=== PATIENT | female | born 1990 | race African-American/Black ===

== ENCOUNTER 2020-03-22 21:22 | Inpatient (IN) | payer OTHER ==
[~2020-03-22] VITALS: Ht 149.9 cm; Wt 44.7 kg
[2020-03-22] MEDS ORDERED: ONDANSETRON HCL 4 MG/2 ML VIAL IV ONE (22:30)
[2020-03-22] MEDS ORDERED: diphenhdrAMINE HCL 50 MG/1 ML VL IV ONE (22:30)
[2020-03-22] MEDS ORDERED: HYDROmorphone HCL 2 MG/ML VL IV ONE (22:30)
[2020-03-22 22:45] LABS: Basophils # (auto) 0.2 10 ^3/uL (0-0.2); Lymphocytes % (auto) 45.2 % (10.0-50.0); Red Blood Cells 2.53 10^6/uL (4.0-5.20)
[2020-03-22 22:47] LABS: Basophils % (auto) 1.2 % (0.0-2.0); Eosinophils # (auto) 0.7 10 ^3/uL (0-0.8); Eosinophils % (auto) 3.3 % (0.0-7.0); Hematocrit 24.3 % (36.0-46.0); Hemoglobin 8.2 g/dL (12.2-16.2); Mean Corpuscular Hemoglobin 32.2 pg (28.0-32.0); Mean Corpuscular Hgb Conc. 33.5 g/dL (32.0-36.0); Mean Corpuscular Volume 96.1 fL (80.0-100.0); Monocytes # (auto) 1.5 10 ^3/uL (0-1.3); Monocytes % (auto) 7.3 % (0.0-12.0); Neutrophils # (auto) 8.6 10 ^3/uL (1.6-8.6); Platelet Count (auto) 180 10^3/uL (140-450); White Blood Cell 19.9 10^3/uL (4.4-10.8)
[2020-03-22 22:49] LABS: Urine Bacteria FEW /hpf (None Seen); Urine Blood Negative /uL (Negative); Urine Hyaline Cast FEW /lpf (0 - 2); Urine Mucus FEW (None Seen); Urine Specific Gravity 1.014 (1.001-1.035); Urine WBC 6 /hpf (0 - 5)
[2020-03-22 23:02] LABS: Alanine Aminotransferase 124 U/L (13-56); Albumin 4.2 g/dL (3.4-5.0); Anion Gap 7 (5-15); Aspartate Aminotransferase 101 U/L (15-37); BUN/Creatinine Ratio 29.4; Blood Urea Nitrogen 15 mg/dL (7-18); Calcium 9.7 mg/dL (8.5-10.1); Carbon Dioxide 28 mmol/L (21-32); Chloride 107 mmol/L (98-107); GFR African American 183 mL/min; GFR Non-African American 152 mL/min; Glucose 81 mg/dL (74-106); Potassium 3.8 mmol/L (3.5-5.1); Sodium 142 mmol/L (136-145)
[2020-03-22 23:07] LABS: Alkaline Phosphatase 180 U/L (45-117); Bilirubin, Total 2.5 mg/dL (0.2-1.0); Total Protein 8.5 g/dL (6.4-8.2)
[2020-03-22 23:08] LABS: Alcohol, Urine < 3.0 mg/dL (0-10); Amphetamine Screen, Urine NEGATIVE (NEGATIVE); Barbiturate Scree,Urine NEGATIVE (NEGATIVE); Benzodiazephine Screen, Urine NEGATIVE (NEGATIVE); Cannabinoid Screen, Urine POSITIVE (NEGATIVE); Cocaine Screen, Urine NEGATIVE (NEGATIVE); Opiate Scree,Urine NEGATIVE (NEGATIVE); Phencyclidine Screen, Urine NEGATIVE (NEGATIVE)
[2020-03-22 23:52] LABS: Nucleated Red Blood Cells % 4.2 %; Red Cell Distribution Width 25.3 % (11.8-14.3)
[2020-03-23 00:12] LABS: INR 1.15 (0.9-1.15); Partial Thromboplastin Time 27.4 sec (23.0-31.2)
[2020-03-23] MEDS ORDERED: DexAMETHasone 4 MG TAB PO ONE (00:45)
[2020-03-23] MEDS ORDERED: ASCORBIC ACID 500 MG TAB PO ONE (00:45)
[2020-03-23] MEDS ORDERED: DOXYCYCLINE 100 MG TAB/CAP PO ONE (00:45)
[2020-03-23 02:19] LABS: Magnesium 2.2 mg/dL (1.6-2.6)
[2020-03-23 02:21] LABS: CRP High Sensitivity 0.72 mg/dL (< 0.3)
[2020-03-23] MEDS ORDERED: traMADol HCL 50 MG TAB PO PRN (04:15)
[2020-03-23] MEDS ORDERED: NITROGLYCERIN 0.4 MG SL TAB SL PRN (04:15)
[2020-03-23] MEDS ORDERED: MORPHINE SULF INJ 2 MG/ML SYRINGE 1ML IV PRN (04:15)
[2020-03-23] MEDS ORDERED: DOCUSATE SOD 100 MG CAP PO PRN (04:15)
[2020-03-23] MEDS: DOXYCYCLINE 100MG/250ML 250 ML IV SCH ×2 (04:56→16:22)
[2020-03-23] MEDS: SOD CHL 0.45% 1,000 ML IV SCH ×2 (06:02→16:22)
[2020-03-23 06:20] VITALS: BP 100/52
--- NOTE | 2020-03-23 06:20 | NUR ---
MS admit from ER to Covid-19 Unit PRASHANTH ONTIVEROS admitted to tele/MS. Patient oriented to LILIA DIA, primary RN, unit, room, bed, and unit policies regarding patient care and visiting hours. Patient is alert and oriented x4. Patient denies shortness of breath. Patient is complaining of generalized pain 10/10 (will medicate patient as ordered by MD). No sign/symptoms of distress noted or verbalized at this time. Instructed on plan of care and encouraged patient to call for assistance as needed. Bed is locked in lowest position, side rails x 2 are up, and call light is within reach.
[2020-03-23] MEDS: ONDANSETRON HCL 4 MG/2 ML VIAL IV PRN (06:40)
[2020-03-23 08:00] VITALS: BP 94/65
[2020-03-23] MEDS: diphenhdrAMINE HCL 50 MG/1 ML VL IV PRN ×5 (08:03→22:50)
[2020-03-23] MEDS: HYDROmorphone HCL 2 MG/ML VL IV PRN ×5 (08:03→22:50)
[2020-03-23] MEDS ORDERED: HYDR500C PO (08:24)
[2020-03-23] MEDS ORDERED: ALBU0.084 NEB (08:24)
[2020-03-23] MEDS ORDERED: ASPI-543 PO (08:24)
[2020-03-23] MEDS ORDERED: CHOL20007 PO (08:24)
[2020-03-23] MEDS ORDERED: ASCO500T11 PO (08:24)
[2020-03-23] MEDS ORDERED: FOLI1TAB6 PO (08:24)
[2020-03-23 09:00] VITALS: BP 94/65
[2020-03-23] MEDS: FAMOTIDINE 20 MG TAB PO SCH ×3 (10:00→21:22)
[2020-03-23] MEDS: ENOXAPARIN SOD 30 MG/0.3 ML SYRINGE SC SCH ×2 (10:00→10:03)
[2020-03-23] MEDS: MULTIPLE VITAMIN TAB PO SCH (10:02)
[2020-03-23] MEDS: DexAMETHasone SOD PHOS 10MG/1ML VIAL INJ IV SCH (10:02)
[2020-03-23] MEDS: ZINC SULFATE 220mg CAP or TAB PO SCH (10:02)
[2020-03-23] MEDS: ASCORBIC ACID 500 MG TAB PO SCH ×2 (10:03→21:58)
--- NOTE | 2020-03-23 10:25 | NUR ---
pain med administration Per NOC RN, Jose and Jamie pulled at 06:38 and given at that time, however documented admin time is 0803. Patient reporting pain of 10/10. Patient is due for medication. Medication administered.
[2020-03-23 10:53] LABS: Albumin 4.3 g/dL (3.4-5.0); Calcium 9.2 mg/dL (8.5-10.1); Potassium 4.1 mmol/L (3.5-5.1)
[2020-03-23 10:57] LABS: BUN/Creatinine Ratio 25.5; Total Protein 8.4 g/dL (6.4-8.2)
--- NOTE | 2020-03-23 11:50 | NUR ---
Dr Zamora bedside with patient discussing plan of care
[2020-03-23] MEDS ORDERED: SIMETHICONE 80 MG CHEWABLE TABLET PO PRN (12:30)
[2020-03-23 13:00] VITALS: BP 106/78
--- NOTE | 2020-03-23 13:47 | NUR ---
recieved report from [facility] rn
[2020-03-23 13:51] LABS: Basophils # (auto) 0.1 10 ^3/uL (0-0.2); Eosinophils # (auto) 0 10 ^3/uL (0-0.8); Hemoglobin 8.4 g/dL (12.2-16.2); Monocytes # (auto) 0.3 10 ^3/uL (0-1.3)
[2020-03-23 13:53] LABS: Basophils % (auto) 0.5 % (0.0-2.0); Lymphocytes # (auto) 2.8 10 ^3/uL (0.4-5.4); Lymphocytes % (auto) 18.9 % (10.0-50.0); Mean Corpuscular Hemoglobin 31.3 pg (28.0-32.0); Mean Corpuscular Hgb Conc. 32.4 g/dL (32.0-36.0); Mean Corpuscular Volume 96.4 fL (80.0-100.0); Monocytes % (auto) 1.9 % (0.0-12.0); Neutrophils # (auto) 11.6 10 ^3/uL (1.6-8.6); Neutrophils % (auto) 78.7 % (37.0-80.0); Platelet Count (auto) 195 10^3/uL (140-450); White Blood Cell 14.8 10^3/uL (4.4-10.8)
[2020-03-23 13:56] LABS: Nucleated Red Blood Cells % 5.7 %
--- NOTE | 2020-03-23 14:40 | NUR ---
Patient transferred to room 286B after report given to RN, Evangelina. Patients personal belongings with patient.
--- NOTE | 2020-03-23 14:43 | NUR ---
PT ARRIVED TO ROOM 86B VIA WHEELCHAIR NO RESPIRATORY DISTRESS NOTED
[2020-03-23 16:58] VITALS: BP 111/60
--- NOTE | 2020-03-23 17:25 | NUR ---
PT REQUESTED THROAT LOZENGE PAGED MD GREGORIO AWAITING CALL BACK
--- NOTE | 2020-03-23 19:15 | NUR ---
REQUEST TO SHOWER DURING SHIFT CHANGE, PATIENT'S MEDICAL ASSISTANT PER DIEM COMES TO NURSES STATION TO REPORT THAT PATIENT WANTS TO TAKE A SHOWER. MEDICAL ASSISTANT PER DIEM DIRECTED TO ASSIST PATIENT WITH SHOWERING NEEDS.
--- NOTE | 2020-03-23 19:30 | NUR ---
OPENING SHIFT NOTE PATIENT COMES TO NURSES STATION WITH DEMANDS THAT SHE WANTS TO SHOWER. PATIENT VERBALLY ABUSIVE TO THIS RN AND OTHER STAFF MEMBERS. PATIENT ASSISTED SAFELY BACK TO ROOM FOR INITIAL ASSESSMENT AND VERBALLY ABUSIVE THAT THIS RN TO PERFORM ASSESSMENT BEFORE SHOWER. PATIENT EDUCATED ON IMPORTANCE FOR INITIAL ASSESSMENT, PATIENT IN AGREEMENT. PATIENT ALERT AND ORIENTED, WITH NO APPARENT S/S OF DISTRESS/SOB. FALL AND SAFETY PRECAUTIONS IN PLACE. CALL LIGHT WITHIN REACH AND ABLE TO USE. PATIENT ASSISTED TO COVER PORTACATH SECURELY AND ASSISTED WITH SHOWERING NEEDS. WILL CONTINUE TO MONITOR EVERY 1 HOUR AND PRN.
[2020-03-23] MEDS ORDERED: DEFEROXAMINE IV SCH (20:15)
[2020-03-23] MEDS ORDERED: D5W 5% IV SCH (20:15)
--- NOTE | 2020-03-23 20:50 | NUR ---
MED NOT AVAILABLE / ON-CALL PHARM CALLED AFTER-HOURS PHARMACY CALLED AT THIS TIME. MEDICATION IS NOT LISTED ON PATIENT'S PROFILE MEDS IN MED [employer]. NOT ABLE TO LOCATED MEDICATION. INSPECTOR FILTER TIP STATED SHE WILL RESTART MED TO ATTEMPT REFRESHMENT IN PATIENT'S PROFILE MEDICATIONS. WILL CONTINUE TO MONITOR.
--- NOTE | 2020-03-23 21:05 | NUR ---
BEACH EXPERT CALLED BEACH EXPERT CALLED FOR ASSISTANCE IN LOCATING MEDICATION. BEACH EXPERT COMES TO [facility] TO LOOK FOR MEDICATION. MEDICATION NOT FOUND. MEDICATION NEEDS TO BE MADE. INSTRUCTED BY BEACH EXPERT TO CALL [facility] FOR MEDICATION.
--- NOTE | 2020-03-23 21:15 | NUR ---
PROSPER MORA PAGED PROSPER MORA PAGEMatt. RECEIVED CALL BACK. NOTIFIED HS THAT THIS RN IN NEED OF PATIENT'S MEDICATION. HS STATED SHE WILL, "LOOK FOR IT" AND LET THIS RN KNOW. WILL CONTINUE TO MONITOR.
--- NOTE | 2020-03-23 21:20 | NUR ---
ON-CALL HOSP NOTIFIED OF MED NON-ADMIN PATIENT REFUSING SCHEDULED MEDICATION (SEE EMAR) STATED SHE DOESN'T LIKE IT. PATIENT EDUCATED ON INDICATION FOR MEDICATION, PATIENT VERBALIZED UNDERSTANDING AND REFUSES. PATIENT EDUCATED REINFORCED AND PATIENT CONTINUES TO REFUSE. ON-CALL HOSP NOTIFIED AT THIS TIME THAT PATIENT REFUSING MEDICATION AND UPDATED ON PATIENT STATUS. FORWARDER OPERATOR STATES UNDERSTANDING AND NEW ORDERS RECEIVED, READ BACK AND VERIFIED (SEE NEW ORDERS). WILL CONTINUE TO MONITOR.
[2020-03-23 22:00] VITALS: BP 112/71
--- NOTE | 2020-03-23 22:00 | NUR ---
MED TO BE GIVEN LATE MEDICATION SCHEDULED AT 2100 (SEE EMAR) STILL NOT AVAILABLE. RECEIVED NOTIFICATION FORM [place] ABBY THAT HS MAKING ATTEMPTS TO WORK WITH ON-CALL PHARMACIST TO MAKE/OBTAIN/DELIVER MEDICATION. [facility] WILL NOTIFY THIS RN IF MEDICATION WILL BE AVAILABLE TODAY AND IF ON-CALL HOSP WILL NEED TO BE NOTIFIED IN CASE THAT MED WILL NOT BE MADE AVAILABLE. FOR THIS REASON, MEDICATION NOT GIVEN ON SCHEDULED TIME / TO BE GIVEN LATE. WILL CONTINUE TO MONITOR.
[2020-03-23] MEDS: THROAT LOZENGES(CEPASTAT) MT PRN (22:10)
--- NOTE | 2020-03-23 22:30 | NUR ---
VERBALLY ABUSIVE / DISRESPECT TOWARDS STAFF MEMBERS PATIENT AGAIN VERBALLY ABUSIVE AT NURSES STATION MAKING FALSE ACCUSATIONS THAT THIS RN LYING TO PATIENT ABOUT WHEN NEXT MEDICATIONS AND PRN'S ARE DUE. PATIENT'S CONCERNS/ACCUSATIONS LISTENED TO AND MADE PATIENT AWARE OF EXPRESSED CONCERNS/ACCUSATIONS. PATIENT EDUCATED THAT 2100 MEDICATION IS BEING WORKED ON IN ADDITION TO WHEN PRN'S ARE NEW DUE. PATIENT VERBALIZED UNDERSTANDING. WILL CONTINUE TO MONITOR.
--- NOTE | 2020-03-23 22:50 | NUR ---
CHANGE IN ATTITUDE DURING MEDICATION ADMINISTRATION, PATIENT WILLINGLY ADMITS THAT [SHE] "HAS A BAD ATTITUDE BUT HAS TO EARN RESPECT FROM OTHERS HOWEVER HAS HAD TO WORK ON ATTITUDE BEFORE [SHE] ENDED/ENDS UP IN [facility]". ADDITIONALLY, PATIENT BEGINS SHARING PERSONAL LIFE EXPERIENCES AND PERSONAL INTERESTS/HOBBIES. PATIENT MORE RELAXED AT THIS TIME. PATIENT STATES CURRENT PAIN MEDICATION REDUCES PAIN LEVEL TO 6/10 WHICH IS A TOLERABLE/COMFORTABLE LEVEL FOR PATIENT. WILL CONTINUE TO MONITOR.
--- NOTE | 2020-03-23 22:50 | NUR ---
RECEIVED MED / DELAYED MOTORCYCLE MECHANIC AT THIS TIME RECEIVED MEDICATION X2 BAGS. FOR THIS REASON 2100 SCHEDULE TO BE GIVEN AT 2300 AND 2300 SCHEDULE TO BE ADMINISTERED LATE AT 0300 (TO FOLLOW Q4H SCHEDULE). WILL CONTINUE TO MONITOR.
[2020-03-23] MEDS: D5W 5% IV SCH (23:00)
[2020-03-23] MEDS: DEFEROXAMINE IV SCH (23:00)
--- NOTE | 2020-03-24 00:40 | NUR ---
DISTURBING PATIENT DISTURBING PATIENT IN NEXT ROOMS BY TALKING LOUDLY ON SPEAKER PHONE WITH ALL LIGHTS ON REPORTED BY PSYCH ARNP STAFF MEMBERS AND THERAPY TECHNICIAN. PATIENT ASKED TO LET OTHER PATIENTS REST, PATIENT IN AGREEMENT.
[2020-03-24] MEDS: ONDANSETRON HCL 4 MG/2 ML VIAL IV PRN (01:59)
--- NOTE | 2020-03-24 02:10 | NUR ---
ON-CALL HOSP PAGED / MED WASTE MED WASTE. PATIENT WAS C/O MIGRAINE HEADACHE. OFFERED PATIENT AVAILABLE PAIN MEDICATION (TRAMADOL), PATIENT VERBALIZED UNDERSTANDING AND IN AGREEMENT. UPON GIVING PATIENT MEDICATION FOR ADMINISTRATION, PATIENT NO LONGER WANTING TO TAKE MEDICATION. PATIENT WANTED THIS RN TO LEAVE BEDSIDE BEFORE PATIENT TO TAKE MEDICATION. PATIENT EDUCATED THAT IS IT NOT ALLOWED TO LEAVE MEDICATIONS AT BEDSIDE. PATIENT NOW REFUSING MEDICATION. DESPITE TRYING TO TALK TO PATIENT TO MANAGE PAIN, PATIENT CONTINUES TO REFUSE AND DEMANDS THAT THIS RN LEAVES ROOM. SECONDARY RN WITNESSES WASTE. PATIENT SCREAMING AND YELLING AT THIS RN. PATIENT AGAIN MAKING FALSE ACCUSATIONS. DISPLAY DIRECTOR COMES TO BEDSIDE AND YELLING THAT DISPLAY DIRECTOR. US FROM NURSING STATION CAN HEAR PATIENT FROM NURSES STATION FROM PATIENT'S ROOM. PATIENT NOW STATING SHE WANTS TO TAKE AMBIEN BECAUSE SHE CANNOT SLEEP. PATIENT EDUCATED ON HOSPITAL POLICY THAT MEDICATION SHOULD HAVE BEEN GIVEN EARLIER AND ONLY ESCALATES MORE. ON-CALL HOSP PAGED TO NOTIFY OF PATIENT'S REQUEST FOR AMBIEN. AWAITING CALL BACK. WILL CONTINUE TO MONITOR.
--- NOTE | 2020-03-24 02:21 | NUR ---
CALL BACK FROM ON-CALL HOSP RECEIVED A CALL BACK FROM ON-CALL HOSP. UPDATED CORRECTIONAL MANAGER ON PATIENT STATUS AND PATIENT REQUEST FOR AMBIEN AT THIS TIME (PAST 0200). RECEIVED NEW ORDERS, READ BACK AND VERIFIED (SEE NEW ORDERS). PER CORRECTIONAL MANAGER, OKAY TO GIVE MEDICATION ONCE CLEARED BY PHARMACY. WILL CARRY OUT. WILL CONTINUE TO MONITOR.
[2020-03-24] MEDS: ZOLPIDEM TARTRATE 5 MG TAB PO PRN (02:35)
[2020-03-24] MEDS: D5W 5% IV SCH (02:50)
[2020-03-24] MEDS: diphenhdrAMINE HCL 50 MG/1 ML VL IV PRN ×5 (02:50→21:52)
[2020-03-24] MEDS: DEFEROXAMINE IV SCH (02:50)
[2020-03-24] MEDS: HYDROmorphone HCL 2 MG/ML VL IV PRN ×5 (02:50→21:50)
[2020-03-24] MEDS: DOXYCYCLINE 100MG/250ML 250 ML IV SCH ×2 (04:45→16:24)
[2020-03-24 05:00] VITALS: BP 98/57
--- NOTE | 2020-03-24 07:30 | NUR ---
Opening Shift Note Received report from overnight babysitter RN, assumed care of patient, pt sleeping at this time. No S/S of distress/SOB. Bed in lowest position, top two side rails up, call light within reach. Will continue to monitor for changes Q1hr and PRN.
[2020-03-24 09:03] VITALS: BP 96/68
--- NOTE | 2020-03-24 09:45 | NUR ---
MEDICATION ADMINISTRATION PER PT SHE DOES NOT WANT LOVENOX OR PROTONIX. EDUCATED PT ON MEDICATION INDICATION AND IMPORTANCE. PT STILL REFUSES MEDICATION.
[2020-03-24] MEDS: ASCORBIC ACID 500 MG TAB PO SCH ×2 (09:50→21:50)
[2020-03-24] MEDS: MULTIPLE VITAMIN TAB PO SCH (09:50)
[2020-03-24] MEDS: ZINC SULFATE 220mg CAP or TAB PO SCH (09:50)
[2020-03-24] MEDS: DexAMETHasone SOD PHOS 10MG/1ML VIAL INJ IV SCH (09:51)
[2020-03-24] MEDS: PANTOPRAZOLE 40 MG/10 ML VIAL INJ IV SCH (09:53)
[2020-03-24] MEDS: ENOXAPARIN SOD 30 MG/0.3 ML SYRINGE SC SCH (09:53)
[2020-03-24 13:00] VITALS: BP 117/65
[2020-03-24] MEDS: SOD CHL 0.45% 1,000 ML IV SCH ×2 (16:36→21:15)
[2020-03-24 17:08] VITALS: BP 109/78
--- NOTE | 2020-03-24 18:30 | NUR ---
LAB DRAW REFUSAL LAB CANCELLED ALL LAB DRAW THIS MORNING PER NOTE PT REFUSED AND CALL WHEN PT READY. PT READY NOW, MADE LAB AWARE PT THEN REFUSED LAB DRAW AGAIN. DR GREGORIO MADE AWARE, NO NEW ORDER RECEIVED.
--- NOTE | 2020-03-24 19:00 | NUR ---
PT REFUSING MEDS PT REFUSING IV FLUIDS AT THIS TIME. EDUCATED PT ON THE IMPORTANCE OF THE FLUIDS, SHE STILL REFUSES.
--- NOTE | 2020-03-24 19:20 | NUR ---
REPORT GIVEN REPORT GIVEN TO AVIONICS INTEGRATION ENGINEER RN. PT STABLE AT THIS TIME.
--- NOTE | 2020-03-24 19:30 | NUR ---
Opening shift note Assumed care of patient from day shift RNReyna. Patient standing up next to the bed upon entry, A&Ox4, respirations even and non-labored without s/s of distress or complaints at this time. Discussed POC with patient and up-coming medications, patient verbalized understanding. Patient refusing fluids at this time stating that she is tired of using the bathroom so much and will only allow the fluids to run with her antibiotics. Bed in lowest locked position with 2 side rails up, call light within reach. Will continue to monitor Q1hr and PRN.
[2020-03-24] MEDS: SIMETHICONE 80 MG CHEWABLE TABLET PO PRN (21:50)
[2020-03-24 22:00] VITALS: BP 115/72
[2020-03-25] MEDS: ZOLPIDEM TARTRATE 5 MG TAB PO PRN (00:02)
[2020-03-25] MEDS ORDERED: CLINDAMYCIN 300MG IV 50 ML IV ONE (01:45)
[2020-03-25] MEDS: HYDROmorphone HCL 2 MG/ML VL IV PRN ×7 (02:30→22:45)
[2020-03-25] MEDS: diphenhdrAMINE HCL 50 MG/1 ML VL IV PRN ×7 (02:30→22:45)
[2020-03-25] MEDS: THROAT LOZENGES(CEPASTAT) MT PRN ×2 (03:59→06:46)
[2020-03-25 05:00] VITALS: BP 92/57
[2020-03-25 08:00] VITALS: BP 120/69
--- NOTE | 2020-03-25 08:00 | NUR ---
OPENING SHIFT NOTE ASSUMED CARE OF PATIENT AWAKE AND ALERT. PATIENT IS AMBULATING IN THE HALLWAYS AND GOING INTO OTHER PATIENT'S ROOMS. PATIENT UPDATED ON POC FOR THE DAY AND ALL QUESTIONS ANSWERED. PATIENT IS EASILY AGITATED WHEN ASKED QUESTIONS STATING "I DON'T KNOW WHY ALL YA'LL KEEP ASKING ME THESE QUESTIONS. EVERYTHING IS IN MY CHART." EXPLAINED TO PATIENT I AIM TO VERIFY MY REPORT INFORMATION WITH HER SO I HAVE THE CORRECT INFORMATION. PATIENT VERBALIZED UNDERSTANDING. WILL CONTINUE TO MONITOR Q1H AND PRN.
[2020-03-25] MEDS: MULTIPLE VITAMIN TAB PO SCH (09:19)
[2020-03-25] MEDS: ASCORBIC ACID 500 MG TAB PO SCH ×2 (09:19→21:30)
[2020-03-25] MEDS: ZINC SULFATE 220mg CAP or TAB PO SCH (09:19)
[2020-03-25] MEDS: PANTOPRAZOLE 40 MG/10 ML VIAL INJ IV SCH (09:19)
[2020-03-25] MEDS: ENOXAPARIN SOD 30 MG/0.3 ML SYRINGE SC SCH (09:19)
[2020-03-25] MEDS: SOD CHL 0.45% 1,000 ML IV SCH (09:20)
[2020-03-25 09:56] LABS: Hematocrit 24.8 % (36.0-46.0); Mean Corpuscular Hemoglobin 32.2 pg (28.0-32.0); Mean Corpuscular Hgb Conc. 32.1 g/dL (32.0-36.0); Mean Corpuscular Volume 100.5 fL (80.0-100.0); Platelet Count (auto) 195 10^3/uL (140-450); Red Blood Cells 2.47 10^6/uL (4.0-5.20); White Blood Cell 22.6 10^3/uL (4.4-10.8)
[2020-03-25 10:00] LABS: Red Cell Distribution Width 27.9 % (11.8-14.3)
[2020-03-25] MEDS ORDERED: CLINDAMYCIN 300MG IV 50 ML IV SCH (10:00)
[2020-03-25 10:02] LABS: Band Neutrophils % (manual) 0
[2020-03-25 10:03] LABS: Blast Cells 0; Myelocytes % 0; Promyelocytes % 0; Reactive Lymphocytes 0
[2020-03-25 10:07] LABS: Albumin 4.4 g/dL (3.4-5.0); Calcium 9.1 mg/dL (8.5-10.1); Magnesium 2.2 mg/dL (1.6-2.6); Potassium 3.6 mmol/L (3.5-5.1)
[2020-03-25 10:12] LABS: BUN/Creatinine Ratio 24.6; Bilirubin, Total 2.4 mg/dL (0.2-1.0); Total Protein 8.5 g/dL (6.4-8.2)
[2020-03-25] MEDS ORDERED: DOXYCYCLINE 100 MG TAB/CAP PO ONE (10:30)
[2020-03-25 10:57] LABS: Basophils % (manual) 1 (0.0-2.0); Eosinophils % (manual) 2 (0-7); Lymphocytes % (manual) 46 (10.0-50.0); Metamyelocytes % 1; Monocytes % (manual) 5 (0-12)
[2020-03-25] MEDS: D5W/SOD CHL 0.45% 1,000 ML IV SCH (11:03)
[2020-03-25 12:00] VITALS: BP 124/79
[2020-03-25 12:48] LABS: Hepatitis A Ab IgM Negative
[2020-03-25 12:51] LABS: Hepatitis B Surface Antigen Negative (Negative)
[2020-03-25 12:52] LABS: Hepatitis B Core IgM Negative
[2020-03-25 12:58] LABS: Hepatitis C Antibody Negative (Negative)
[2020-03-25 16:55] VITALS: BP 119/65
--- NOTE | 2020-03-25 19:20 | NUR ---
Opening shift note Assumed care of patient from day shift RN, Cee. Patient ambulating the hallways, A&Ox4, respirations even and non-labored with no s/s of distress at this time. Discussed POC and answered patient questions regarding dinner, pain medications, and family dynamics. Bed is currently in the lowest locked position with 1 side rail up as the patient continues to lower the rail and refuses to keep it up. Patient repeatedly warned of its danger and risks for falling but patient continues to lower it back down for the second night of this RNs shift. Will continue to advise patient of the need to keep the top side bed rail up for her safety. Patient continues to verbalize understanding of the risk of her falling. Call light within reach of the patient. Will continue to monitor Q1hr and PRN.
[2020-03-25] MEDS: DOXYCYCLINE 100 MG TAB/CAP PO SCH (21:31)
[2020-03-25] MEDS: SIMETHICONE 80 MG CHEWABLE TABLET PO PRN (21:31)
[2020-03-25 22:00] VITALS: BP 104/73
[2020-03-26] MEDS: ZOLPIDEM TARTRATE 5 MG TAB PO PRN ×2 (00:53→23:50)
[2020-03-26 05:00] VITALS: BP 103/74
[2020-03-26] MEDS: D5W/SOD CHL 0.45% 1,000 ML IV SCH (06:30)
--- NOTE | 2020-03-26 06:30 | NUR ---
Patient sleeping without s/s of distress at this time. Respirations even and non-labored without SOB.
[2020-03-26 08:00] VITALS: BP 124/91
[2020-03-26 08:30] VITALS: BP 124/91
--- NOTE | 2020-03-26 08:35 | NUR ---
Patient resting quietly in bed with no distress noted at this time. Patient stable.
[2020-03-26] MEDS: MULTIPLE VITAMIN TAB PO SCH (09:49)
[2020-03-26] MEDS: PANTOPRAZOLE 40 MG/10 ML VIAL INJ IV SCH (09:49)
[2020-03-26] MEDS: ASCORBIC ACID 500 MG TAB PO SCH ×2 (09:50→22:29)
[2020-03-26] MEDS: ENOXAPARIN SOD 30 MG/0.3 ML SYRINGE SC SCH (09:50)
[2020-03-26] MEDS: DOXYCYCLINE 100 MG TAB/CAP PO SCH ×2 (09:50→22:30)
[2020-03-26] MEDS: HYDROmorphone HCL 2 MG/ML VL IV PRN ×4 (09:51→22:31)
[2020-03-26] MEDS: diphenhdrAMINE HCL 50 MG/1 ML VL IV PRN ×4 (09:52→22:30)
--- NOTE | 2020-03-26 09:52 | NUR ---
Scheduled medications given per order. Patient also medicated for 10/10 chest/abdominal pain and itching. Patient stable at this time.
[2020-03-26] MEDS: ZINC SULFATE 220mg CAP or TAB PO SCH (10:02)
--- NOTE | 2020-03-26 10:50 | NUR ---
Patient ambulating in hallway.
[2020-03-26 12:00] VITALS: BP 119/83
--- NOTE | 2020-03-26 12:30 | NUR ---
Patient ambulating in hallway at this time. Patient stable.
--- NOTE | 2020-03-26 13:10 | NUR ---
Patient ambulating in room. No complaint of pain or discomfort at this time. Patient stable.
--- NOTE | 2020-03-26 14:26 | NUR ---
Patient medicated for 9/10 lower back and abdominal pain. Patient stable.
--- NOTE | 2020-03-26 14:28 | NUR ---
Nutrition Assessment Note Please see attached link for complete assessment [employer] needs BW 47 [id number] kcals (25-30 kcal/kgBW), Est Protein needs: 47-56 gms/day (1.0-1.2 gm/kgBW). Will continue to monitor and reassess prn. Addendum: 03/26/20 at [address] Amended: Links added.
[2020-03-26 15:19] LABS: Basophils # (auto) 0.1 10 ^3/uL (0-0.2); Eosinophils # (auto) 0.5 10 ^3/uL (0-0.8); Eosinophils % (auto) 2.5 % (0.0-7.0); Hematocrit 23.7 % (36.0-46.0); Red Blood Cells 2.45 10^6/uL (4.0-5.20)
[2020-03-26 15:23] LABS: Basophils % (auto) 0.7 % (0.0-2.0); Hemoglobin 7.9 g/dL (12.2-16.2); Lymphocytes # (auto) 7.9 10 ^3/uL (0.4-5.4); Lymphocytes % (auto) 41.8 % (10.0-50.0); Mean Corpuscular Hemoglobin 32.1 pg (28.0-32.0); Mean Corpuscular Hgb Conc. 33.3 g/dL (32.0-36.0); Mean Corpuscular Volume 96.5 fL (80.0-100.0); Monocytes # (auto) 1.3 10 ^3/uL (0-1.3); Neutrophils # (auto) 9.1 10 ^3/uL (1.6-8.6); Platelet Count (auto) 204 10^3/uL (140-450)
[2020-03-26 15:29] LABS: Nucleated Red Blood Cells % 4.7 %; Red Cell Distribution Width 25.6 % (11.8-14.3)
[2020-03-26 15:34] LABS: Albumin 4.6 g/dL (3.4-5.0); Calcium 9.7 mg/dL (8.5-10.1); Potassium 4.1 mmol/L (3.5-5.1)
[2020-03-26 15:37] LABS: BUN/Creatinine Ratio 22.4; Bilirubin, Total 3.1 mg/dL (0.2-1.0); Total Protein 8.4 g/dL (6.4-8.2)
[2020-03-26 17:00] VITALS: BP 124/79
--- NOTE | 2020-03-26 18:29 | NUR ---
Patient sitting on side of bed with complaint of 9/10 back and chest pain. Due pain med given. Patient stable throughout shift.
--- NOTE | 2020-03-26 19:05 | NUR ---
Patient ambulating around nurses' station. Patient stable throughout shift.
--- NOTE | 2020-03-26 19:20 | NUR ---
Opening shift note Assumed care of patient from day shift RN. Patient currently ambulating around nursing station with another patient talking with various staff members in an angry voice and using profanity. Patient is upset about the care being given to a friend of hers who is a patient several doors down. Patient has returned to her room with her friend. Status is unchanged at this point as of last shift per day shift nurse. Will continue to monitor Q1hr and PRN.
[2020-03-26 21:30] VITALS: BP 109/66
--- NOTE | 2020-03-26 22:00 | NUR ---
Heat pack give to patient.
[2020-03-26] MEDS: SIMETHICONE 80 MG CHEWABLE TABLET PO PRN (22:29)
[2020-03-26] MEDS: ONDANSETRON HCL 4 MG/2 ML VIAL IV PRN (23:49)
--- NOTE | 2020-03-27 00:47 | NUR ---
Heat pack given to patient
[2020-03-27] MEDS: diphenhdrAMINE HCL 50 MG/1 ML VL IV PRN ×5 (02:21→19:22)
[2020-03-27] MEDS: HYDROmorphone HCL 2 MG/ML VL IV PRN ×5 (02:21→19:23)
[2020-03-27] MEDS: THROAT LOZENGES(CEPASTAT) MT PRN (02:22)
[2020-03-27] MEDS: D5W/SOD CHL 0.45% 1,000 ML IV SCH (02:30)
[2020-03-27 04:30] VITALS: BP 109/55
[2020-03-27 06:48] LABS: Albumin 3.8 g/dL (3.4-5.0); Calcium 9.1 mg/dL (8.5-10.1); Potassium 3.9 mmol/L (3.5-5.1)
[2020-03-27 06:51] LABS: BUN/Creatinine Ratio 21.7; Bilirubin, Total 3.3 mg/dL (0.2-1.0); Total Protein 6.9 g/dL (6.4-8.2)
[2020-03-27 07:15] LABS: Basophils # (auto) 0.1 10 ^3/uL (0-0.2); Basophils % (auto) 0.7 % (0.0-2.0); Eosinophils # (auto) 0.6 10 ^3/uL (0-0.8); Eosinophils % (auto) 2.7 % (0.0-7.0); Hematocrit 18.7 % (36.0-46.0); Mean Corpuscular Hemoglobin 31.5 pg (28.0-32.0); Mean Corpuscular Hgb Conc. 33.1 g/dL (32.0-36.0); Mean Corpuscular Volume 95.2 fL (80.0-100.0); Monocytes # (auto) 1.2 10 ^3/uL (0-1.3); Monocytes % (auto) 5.6 % (0.0-12.0); Neutrophils # (auto) 9.6 10 ^3/uL (1.6-8.6); Platelet Count (auto) 166 10^3/uL (140-450); Red Blood Cells 1.97 10^6/uL (4.0-5.20); White Blood Cell 20.4 10^3/uL (4.4-10.8)
--- NOTE | 2020-03-27 07:30 | NUR ---
Closing shift note Patient resting without s/s of distress at this time. Endorsed care to day shift RNYarelis.
[2020-03-27 07:33] LABS: Nucleated Red Blood Cells % 4.8 %
[2020-03-27 07:34] LABS: Hemoglobin 6.2 g/dL (12.2-16.2); Red Cell Distribution Width 23.3 % (11.8-14.3)
--- NOTE | 2020-03-27 07:35 | NUR ---
Patient ambulated to bathroom and back to bed. States pain is not subsiding. No distress noted at this time.
[2020-03-27 08:30] VITALS: BP 99/62
[2020-03-27 09:00] VITALS: BP 99/62
[2020-03-27] MEDS: ENOXAPARIN SOD 30 MG/0.3 ML SYRINGE SC SCH (10:00)
[2020-03-27] MEDS: DOXYCYCLINE 100 MG TAB/CAP PO SCH (10:14)
[2020-03-27] MEDS: ZINC SULFATE 220mg CAP or TAB PO SCH (10:15)
[2020-03-27] MEDS: MULTIPLE VITAMIN TAB PO SCH (10:16)
[2020-03-27] MEDS: ASCORBIC ACID 500 MG TAB PO SCH (10:16)
[2020-03-27] MEDS: PANTOPRAZOLE 40 MG/10 ML VIAL INJ IV SCH (10:18)
--- NOTE | 2020-03-27 10:19 | NUR ---
Patient resting comfortably in bed with no distress noted. Scheduled medications given per order. Patient stable.
--- NOTE | 2020-03-27 11:30 | NUR ---
Patient medicated for 10/10 pain.
[2020-03-27 11:43] LABS: Hematocrit 19.6 % (36.0-46.0)
[2020-03-27 11:47] LABS: Hemoglobin 6.4 g/dL (12.2-16.2)
[2020-03-27 13:00] VITALS: BP 98/57
--- NOTE | 2020-03-27 14:10 | NUR ---
Patient stable with Dr. Muniz at bedside.
[2020-03-27] MEDS ORDERED: [UNRECOGNIZED DRUG - OTHER] IM ONE (14:15)
[2020-03-27] MEDS: SIMETHICONE 80 MG CHEWABLE TABLET PO PRN (15:43)
--- NOTE | 2020-03-27 15:44 | NUR ---
Patient medicated for 10/10 back pain. Patient stable at this time.
[2020-03-27 16:51] VITALS: BP 107/77
[2020-03-27] MEDS ORDERED: [UNRECOGNIZED DRUG - OTHER] IM SCH (18:00)
--- NOTE | 2020-03-27 19:24 | NUR ---
Patient medicated for 9/10 back pain. Patient stable throughout shift.
--- NOTE | 2020-03-27 21:10 | NUR ---
test engine evaluator Imelda notified Hospitalist RABIA Hernandez that pt's leaving AMA.
--- NOTE | 2020-03-27 21:13 | NUR ---
pt left AMA as she couldn't stay any longer since she has a lot going and need to leave tonight. Pt was advised that leaving against medical advise could lead up to . IV access removed. All personal belongings taken home by pt.
== END 2020-03-27 21:07 | disposition left against medical advice (07) | DRG 662 ==
LOC: ER 21:22 → OVERFLOW 21:23 → EAST 03-23 06:20 → WEST WING 03-23 14:50
PROVIDERS: ADMIT Nurse Practitioner Family; ATTEND Internal Medicine
DX: D57.00 Hb-SS disease with crisis, unspecified (principal); I67.5 Moyamoya disease; R16.0 Hepatomegaly, not elsewhere classified; N75.8 Other diseases of Bartholin's gland; E83.119 Hemochromatosis, unspecified; G89.29 Other chronic pain; F32.9 Major depressive disorder, single episode, unspecified; J45.909 Unspecified asthma, uncomplicated; F12.10 Cannabis abuse, uncomplicated; Z20.828 Contact with and (suspected) exposure to other viral communicable diseases; I51.7 Cardiomegaly; Z90.49 Acquired absence of other specified parts of digestive tract; Z90.81 Acquired absence of spleen; Z82.49 Family history of ischemic heart disease and other diseases of the circulatory system; Z83.3 Family history of diabetes mellitus; Z86.73 Personal history of transient ischemic attack (TIA), and cerebral infarction without residual deficits
CPT/HCPCS: 36415; 70450; 71045; 72100; 74176; 80053; 80074; 80307; 81001; 82728; 83021; 83036; 83605; 83615; 83735; 83880; 84100; 84443; 84484; 84702; 85007; 85014; 85018; 85025; 85027; 85045; 85379; 85610; 85660; 85730; 86141; 86850; 86900; 86901; 86920; 87040; 87081; 87426; 96374; 96375; C9113; G0378; J1100; J1642; J2405; J3490; J7060